=== PATIENT | female | born 1945 | race Caucasian/White ===

== ENCOUNTER → 2020-03-04 08:20 | Outpatient (BNVA) | payer MEDICARE, OTHER, SELFPAY | PROVIDERS: Visit Provider Psychiatry & Neurology Psychiatry | DX: F41.1 Generalized anxiety disorder (principal); F33.42 Major depressive disorder, recurrent, in full remission | CPT/HCPCS: 99214 ==

== ENCOUNTER → 2020-03-18 07:35 | Outpatient (BNVA) | payer MEDICARE, OTHER, SELFPAY | PROVIDERS: Visit Provider Psychiatry & Neurology Psychiatry | DX: F33.42 Major depressive disorder, recurrent, in full remission (principal); F41.1 Generalized anxiety disorder | CPT/HCPCS: 99213 ==

== ENCOUNTER → 2020-05-13 08:01 | Outpatient (BNVA) | payer MEDICARE, OTHER, SELFPAY | PROVIDERS: Visit Provider Psychiatry & Neurology Psychiatry | DX: F41.1 Generalized anxiety disorder (principal); F33.42 Major depressive disorder, recurrent, in full remission | CPT/HCPCS: 99213 ==

== ENCOUNTER → 2020-08-30 07:31 | Outpatient (BNVA) | payer MEDICARE, OTHER, SELFPAY | PROVIDERS: Visit Provider Psychiatry & Neurology Psychiatry | DX: F41.1 Generalized anxiety disorder (principal); F33.42 Major depressive disorder, recurrent, in full remission | CPT/HCPCS: 99213 ==

== ENCOUNTER → 2020-11-23 07:28 | Outpatient (BNVA) | payer MEDICARE, OTHER, SELFPAY | PROVIDERS: Visit Provider Psychiatry & Neurology Psychiatry | DX: F41.1 Generalized anxiety disorder (principal); F33.42 Major depressive disorder, recurrent, in full remission | CPT/HCPCS: 99213 ==

== ENCOUNTER → 2021-01-18 07:21 | Outpatient (BNVA) | payer MEDICARE, OTHER, SELFPAY | PROVIDERS: Visit Provider Psychiatry & Neurology Psychiatry | DX: F33.42 Major depressive disorder, recurrent, in full remission (principal); F41.1 Generalized anxiety disorder | CPT/HCPCS: 99213 ==

== ENCOUNTER → 2021-05-17 09:44 | Outpatient (BNVA) | payer MEDICARE, OTHER, SELFPAY | PROVIDERS: Visit Provider Psychiatry & Neurology Psychiatry | DX: F33.42 Major depressive disorder, recurrent, in full remission (principal); F41.1 Generalized anxiety disorder | CPT/HCPCS: 99213 ==

== ENCOUNTER → 2021-11-16 09:38 | Outpatient (BNVA) | payer MEDICARE, OTHER, SELFPAY | PROVIDERS: Visit Provider Psychiatry & Neurology Psychiatry | DX: F33.42 Major depressive disorder, recurrent, in full remission (principal); F41.1 Generalized anxiety disorder | CPT/HCPCS: 99214 ==

== ENCOUNTER → 2022-04-12 09:42 | Outpatient (BNVA) | payer MEDICARE, OTHER, SELFPAY | PROVIDERS: Visit Provider Psychiatry & Neurology Psychiatry | DX: F33.42 Major depressive disorder, recurrent, in full remission (principal); F41.1 Generalized anxiety disorder | CPT/HCPCS: 99214 ==

== ENCOUNTER 2023-09-13 20:05 | Emergency (ER) | payer MEDICARE, OTHER, SELFPAY ==
[2023-09-13 20:15] VITALS: BP 142/74; PULSE 70; RESP 18; TEMP 36.7; O2SAT 95; BMI 26.0
--- NOTE | 2023-09-13 21:14 | XRR_ITS ---
PROCEDURE INFORMATION: Exam: XR Left Knee Exam date and time: 09/13/2023 10:44 PM Age: 78 years old Clinical indication: Injury or trauma; Patient HX: Left knee pain post fall TECHNIQUE: Imaging protocol: Radiologic exam of the left knee. Views: 3 views. COMPARISON: No relevant prior studies available. FINDINGS: Bones/joints: There is a slightly displaced comminuted horizontal and vertical fracture through the midportion of the patella. Small knee joint effusion noted. Femur, tibia, and fibula are intact. Soft tissues: Prepatellar soft tissue swelling. XR/XR knee LT 3V* [id number] IMPRESSION: Comminuted predominantly horizontal fracture through the patella is mildly displaced.
--- NOTE | 2023-09-13 22:34 | W.ED.EXTPRO ---
Documented by User: COLE Watkins 09/13/23 23:26 HPI - Extremity Problem General: Chief complaint: Extremity Injury, Lower Stated complaint: fall, left knee injury Time Seen by Provider: 09/13/23 22:30 History of Present Illness: 78-year-old female comes in today with injury to the left knee. Patient reports she tripped on the last step causing her to fall forward and strike her knee against the ground. Patient has bruising and some swelling to the anterior knee patellar region. Patient has difficulty straightening knee due to pain. Patient appears nontoxic. Patient appears moderate pain. Review of Systems General: Reports: 10 or more systems reviewed and unremarkable except in HPI and below Musc: Reports: extremity pain and extremity swelling [facility] ED PFSH: Medical History (Updated 09/13/23 @ 23:07 by COLE Watkins) Generalized anxiety disorder Major depressive disorder, recurrent, in full remission with anxious distress Psychiatric care Social History Smoking and tobacco/nicotine status: former use of tobacco/nicotine Quit status (tobacco/nicotine): has quit using Year quit tobacco: 25 years ago Second hand smoke exposure: No Alcohol intake: never Substance/Drug Use: never Physical Exam Const: COMMON NORMALS: alert HENMT: COMMON NORMALS: normocephalic HEAD & SCALP: normocephalic Neck/C-Spine: COMMON NORMALS: full ROM Resp: COMMON NORMALS: normal respiratory effort Cardio: COMMON NORMALS: regular rate RATE: regular rate Back/Pelvis: COMMON NORMALS: thoracic and lumbar spine normal to inspection Extremity: RIGHT LOWER EXTREMITY: Yes knee joint (Anterior knee with mild swelling and ecchymosis) Neuro: SENSORIUM/ORIENTATION: Yes alert Skin: COMMON NORMALS: turgor normal GENERAL SKIN EXAM: turgor normal Course Vital Signs: Vital signs: Vital Signs Temperature 98.0 F 09/13/23 20:15 Pulse Rate 76 09/13/23 23:28 Respiratory Rate 16 09/13/23 23:28 Blood Pressure 159/86 09/13/23 23:28 Pulse Oximetry 96 09/13/23 23:28 Oxygen Delivery Me thod Room Air 09/13/23 20:15 MDM - Extremity (Nontraumatic) Medical Decision Making 78-year-old female comes in today for complaints of injury to the left knee. On exam patient has some ecchymosis to the patellar region of the left knee with some mild anterior swelling. Differential diagnosis includes but not limited to fracture, contusion, meniscal injury. X-ray of the left knee noted a fracture of the patella. Reviewed this with Dr. Evans, attending ER physician. He agreed with plan for knee immobilizer and walker with follow-up with orthopedist. Discussed with with patient and family who agreed with plan. Lab Data Radiology Impressions Knee X-Ray 09/13/23 21:14 IMPRESSION: Comminuted predominantly horizontal fracture through the patella is mildly displaced. XR interpretation done by ED provider, pending radiology final review ED provider radiology interpretation(s): Mildly displaced patella fracture Discharge Plan Discharge Patient Disposition: Home Clinical Impression: Fracture, patella Qualifiers: Encounter type: initial encounter Fracture type: closed Fracture morphology: unspecified fracture morphology Fracture alignment: displaced Laterality: left Qualified Code(s): S82.002A - Unspecified fracture of left patella, initial encounter for closed fracture Condition: Stable Prescriptions: New hydrocodone-acetaminophen 5-325 mg tablet 1 tab PO Q6H PRN (Reason: pain (scale score 7-10)) Qty: 12 0RF No Action omeprazole 40 mg capsule,delayed release(DR/EC) 40 mg PO DAILY amlodipine 5 mg tablet 5 mg PO DAILY simvastatin 20 mg tablet 20 mg PO DAILY latanoprost 0.005 % drops See Rx Instructions ophthalmic (eye) DAILY Rx Instructions: 1 gtt each eye ophthalmic (eye) daily; timolol 0.5 % drops 1 drp ophthalmic (eye) BID brimonidine 0.2 % drops 1 drp ophthalmic (eye) BID Rx Instructions: administer approximately 8 hours apart citalopram [Celexa] 20 mg tablet 20 mg PO DAILY Qty: 90 3RF Discharge Orders: Discharge ED (Routine); Ordered 09/13/23 Ordered By: Rajendra Murdock Other Ambulatory Orders: DME: Walker (Order) Location: None Selected Ordered By: Rajendra Murdock Referrals: Martinez Lux DO [Primary Care Provider] - Discharge Diet: Usual diet Discharge Activity: Limit activity as instructed Patient Instructions: Patellar Fracture (ED), Opioid Safety Activity Restrictions/Additional Instructions: Wear knee immobilizer for protection of fracture. Use walker to help with ambulation. Use acetaminophen and ibuprofen to control pain. Use hydrocodone for severe pain. Increase activity as tolerated. Follow-up with orthopedist for further evaluation and treatment. Return to ED for new concerns. Coding Level of Care Code ED [facility] for Jeng Fwd Documented by User: Kamran Evans, DO 09/14/23 17:31 HPI - Extremity Problem General: Chief complaint: Extremity Injury, Lower Stated complaint: fall, left knee injury Time Seen by Provider: 09/13/23 22:30 [facility] ED PFSH: Medical History (Updated 09/13/23 @ 23:07 by COLE Watkins) Generalized anxiety disorder Major depressive disorder, recurrent, in full remission with anxious distress Psychiatric care Social History Smoking and tobacco/nicotine status: former use of tobacco/nicotine Quit status (tobacco/nicotine): has quit using Year quit tobacco: 25 years ago Second hand smoke exposure: No Alcohol intake: never Substance/Drug Use: never Course Vital Signs: Vital signs: Vital Signs Temperature 98.0 F 09/13/23 20:15 Pulse Rate 76 09/13/23 23:28 Respiratory Rate 16 09/13/23 23:28 Blood Pressure 159/86 09/13/23 23:28 Pulse Oximetry 96 09/13/23 23:28 Oxygen Delivery Me thod Room Air 09/13/23 20:15 MDM - Extremity (Nontraumatic) Medical Decision Making 78-year-old female comes in today for complaints of injury to the left knee. On exam patient has some ecchymosis to the patellar region of the left knee with some mild anterior swelling. Differential diagnosis includes but not limited to fracture, contusion, meniscal injury. X-ray of the left knee noted a fracture of the patella. Reviewed this with Dr. Evans, attending ER physician. He agreed with plan for knee immobilizer and walker with follow-up with orthopedist. Discussed with with patient and family who agreed with plan. Patient originally seen by MrAnge MurdockCOLE. I agree with history, evaluation, and management. Lab Data Radiology Impressions Knee X-Ray 09/13/23 21:14 IMPRESSION: Comminuted predominantly horizontal fracture through the patella is mildly displaced. Discharge Plan Discharge Patient Disposition: Home Clinical Impression: Fracture, patella Qualifiers: Encounter type: initial encounter Fracture type: closed Fracture morphology: unspecified fracture morphology Fracture alignment: displaced Laterality: left Qualified Code(s): S82.002A - Unspecified fracture of left patella, initial encounter for closed fracture Condition: Stable Prescriptions: New hydrocodone-acetaminophen 5-325 mg tablet 1 tab PO Q6H PRN (Reason: pain (scale score 7-10)) Qty: 12 0RF No Action omeprazole 40 mg capsule,delayed release(DR/EC) 40 mg PO DAILY amlodipine 5 mg tablet 5 mg PO DAILY simvastatin 20 mg tablet 20 mg PO DAILY latanoprost 0.005 % drops See Rx Instructions ophthalmic (eye) DAILY Rx Instructions: 1 gtt each eye ophthalmic (eye) daily; timolol 0.5 % drops 1 drp ophthalmic (eye) BID brimonidine 0.2 % drops 1 drp ophthalmic (eye) BID Rx Instructions: administer approximately 8 hours apart citalopram [Celexa] 20 mg tablet 20 mg PO DAILY Qty: 90 3RF Discharge Orders: Discharge ED (Routine); Ordered 09/13/23 Ordered By: Rajendra Murdock Other Ambulatory Orders: DME: Walker (Order) Location: None Selected Ordered By: Rajendra Murdock Referrals: Martinez Lux DO [Primary Care Provider] - Discharge Diet: Usual diet Discharge Activity: Limit activity as instructed Patient Instructions: Patellar Fracture (ED), Opioid Safety Activity Restrictions/Additional Instructions: Wear knee immobilizer for protection of fracture. Use walker to help with ambulation. Use acetaminophen and ibuprofen to control pain. Use hydrocodone for severe pain. Increase activity as tolerated. Follow-up with orthopedist for further evaluation and treatment. Return to ED for new concerns. Coding Level of Care Code ED [facility] for Ajay Canseco
[2023-09-13] MEDS: HYDROcodone-acetaminophen 5-325 mg Tablet 1 TAB PO (22:41)
[2023-09-13 23:28] VITALS: BP 159/86; PULSE 76; RESP 16; O2SAT 96
--- NOTE | 2023-09-16 08:29 | DCPLANNER ---
Referral was sent to ortho clinic on 09/16/23 at 0829. Clinic to contact patient.
== END 2023-09-14 00:05 | disposition home or self-care (01) ==
PROVIDERS: Emergency Provider Nurse Practitioner Family; PCP Internal Medicine
DX: S82.002A Unspecified fracture of left patella, initial encounter for closed fracture (principal); Z87.891 Personal history of nicotine dependence; W01.0XXA Fall on same level from slipping, tripping and stumbling without subsequent striking against object, initial encounter
CPT/HCPCS: 29530; 73562; 99283

== ENCOUNTER → 2023-09-17 09:52 | Outpatient (BNVA) | payer MEDICARE, OTHER, SELFPAY | PROVIDERS: PCP Internal Medicine; Visit Provider Physician Assistant | DX: S82.002A Unspecified fracture of left patella, initial encounter for closed fracture (principal); W19.XXXA Unspecified fall, initial encounter | CPT/HCPCS: 73562; 99203 ==

== ENCOUNTER → 2023-09-24 13:00 | Outpatient (BNVA) | payer MEDICARE, OTHER, SELFPAY | PROVIDERS: PCP Internal Medicine; Visit Provider Physician Assistant | DX: S82.002D Unspecified fracture of left patella, subsequent encounter for closed fracture with routine healing (principal); W13.9XXA Fall from, out of or through building, not otherwise specified, initial encounter | CPT/HCPCS: 73562; 99213 ==

== ENCOUNTER → 2023-10-01 12:55 | Outpatient (BNVA) | payer MEDICARE, OTHER, SELFPAY | PROVIDERS: PCP Internal Medicine; Visit Provider Physician Assistant | DX: S82.009D Unspecified fracture of unspecified patella, subsequent encounter for closed fracture with routine healing (principal); W13.9XXA Fall from, out of or through building, not otherwise specified, initial encounter | CPT/HCPCS: 73562; 99213 ==

== ENCOUNTER 2023-10-02 13:37 | Outpatient (CLI) | payer MEDICARE, OTHER, SELFPAY | END 2023-10-02 13:38 | disposition home or self-care (01) | LOC: SPT 13:38 | PROVIDERS: PCP Internal Medicine; Visit Provider Physician Assistant | DX: Z46.89 Encounter for fitting and adjustment of other specified devices (principal); S89.92XD Unspecified injury of left lower leg, subsequent encounter; X58.XXXD Exposure to other specified factors, subsequent encounter | CPT/HCPCS: 97760; L1832 ==

== ENCOUNTER → 2023-10-08 07:49 | Outpatient (BNVA) | payer MEDICARE, OTHER, SELFPAY | PROVIDERS: PCP Internal Medicine; Visit Provider Physician Assistant | DX: S82.002D Unspecified fracture of left patella, subsequent encounter for closed fracture with routine healing (principal); X58.XXXD Exposure to other specified factors, subsequent encounter | CPT/HCPCS: 73562; 99213 ==

== ENCOUNTER → 2023-10-29 08:41 | Outpatient (BNVA) | payer MEDICARE, OTHER, SELFPAY | PROVIDERS: PCP Internal Medicine; Visit Provider Physician Assistant | DX: S82.002D Unspecified fracture of left patella, subsequent encounter for closed fracture with routine healing (principal); X58.XXXD Exposure to other specified factors, subsequent encounter | CPT/HCPCS: 73562; 99213 ==

== ENCOUNTER → 2023-11-14 14:21 | Outpatient (BNVA) | payer MEDICARE, OTHER, SELFPAY | PROVIDERS: PCP Internal Medicine; Visit Provider Physician Assistant | DX: S82.002D Unspecified fracture of left patella, subsequent encounter for closed fracture with routine healing; X58.XXXD Exposure to other specified factors, subsequent encounter | CPT/HCPCS: 73562; 99213 ==

== ENCOUNTER → 2023-12-05 13:13 | Outpatient (BNVA) | payer MEDICARE, OTHER, SELFPAY | PROVIDERS: PCP Internal Medicine; Visit Provider Orthopaedic Surgery | DX: S82.002D Unspecified fracture of left patella, subsequent encounter for closed fracture with routine healing (principal); X58.XXXD Exposure to other specified factors, subsequent encounter | CPT/HCPCS: 73562; 99213 ==

== ENCOUNTER 2023-12-20 09:04 | Outpatient (RCR) | payer MEDICARE, OTHER, SELFPAY | END 2024-01-16 23:59 | disposition home or self-care (01) | LOC: SPT 09:04 | PROVIDERS: Visit Provider Orthopaedic Surgery | DX: M25.562 Pain in left knee (principal) | CPT/HCPCS: 97110; 97116; 97161 ==

== ENCOUNTER → 2024-01-07 12:41 | Outpatient (BNVA) | payer MEDICARE, OTHER, SELFPAY | PROVIDERS: PCP Internal Medicine; Visit Provider Orthopaedic Surgery | DX: S82.002D Unspecified fracture of left patella, subsequent encounter for closed fracture with routine healing (principal); X58.XXXD Exposure to other specified factors, subsequent encounter | CPT/HCPCS: 99213 ==

== ENCOUNTER 2024-01-17 06:00 | Outpatient (RCR) | payer MEDICARE, OTHER, SELFPAY | END 2024-01-23 23:59 | disposition home or self-care (01) | LOC: SPT 06:00 | PROVIDERS: PCP Internal Medicine; Visit Provider Orthopaedic Surgery | DX: M25.562 Pain in left knee (principal) | CPT/HCPCS: 97110; 97116 ==